=== PATIENT | male | born 1980 | race Caucasian/White ===

== ENCOUNTER 2018-03-10 20:48 | Emergency (ER) | payer OTHER ==
[~2018-03-10] VITALS: Ht 182.9 cm; Wt 131.1 kg
[2018-03-10] MEDS ORDERED: COZAAR50 MG (21:07)
[2018-03-10] MEDS ORDERED: SYNTHROID100 MCG (21:07)
== END 2018-03-11 00:01 | disposition home or self-care (01) ==
LOC: ER 20:48
DX: K29.60 Other gastritis without bleeding (principal)